=== PATIENT | male | born 1945 | race Caucasian/White ===

== ENCOUNTER → 2020-07-23 | Outpatient (CLI) | payer MEDICARE, OTHER, SELFPAY ==
[2020-07-23 18:22] LABS: ALB/GLOB Ratio 0.9 RATIO (0.9-2.4); AST(SGOT) 27 U/L (15-37); Alanine Aminotransfer ALT/SGPT 57 U/L (16-61); Albumin, Serum 3.1 g/dL (3.2-5.0); Alkaline Phosphatase 115 U/L (45-117); Anion Gap 8 (5-15); BUN 15 mg/dL (7-18); BUN/Creat Ratio 13.4 RATIO (10-20); Calcium,Total 9.1 mg/dL (8.5-10.1); Chloride 92 mmol/L (98-107); Creatinine, Serum 1.12 mg/dL (0.70-1.30); EST Glomerular Filtration Rate 68 mL/min (>60); Est Glom Filt Rate - Afr Amer 82 mL/min (>60); Globulin 3.6 g/dL (2.2-4.2); Glucose 110 mg/dL (74-106); Potassium 4.1 mmol/L (3.5-5.1); Protein, Total 6.7 g/dL (6.4-8.2); Sodium Level 128 mmol/L (136-145)
== END | disposition home or self-care (01) ==
PROVIDERS: Visit Provider Family Medicine
DX: E83.51 Hypocalcemia (principal)
CPT/HCPCS: 80053

== ENCOUNTER → 2020-07-30 | Outpatient (CLI) | payer MEDICARE, OTHER, SELFPAY ==
[2020-07-30 18:26] LABS: Anion Gap 8 (5-15); BUN 14 mg/dL (7-18); BUN/Creat Ratio 11.5 RATIO (10-20); Chloride 98 mmol/L (98-107); Creatinine, Serum 1.22 mg/dL (0.70-1.30); EST Glomerular Filtration Rate 61 mL/min (>60); Est Glom Filt Rate - Afr Amer 74 mL/min (>60); Glucose 97 mg/dL (74-106); Potassium 4.2 mmol/L (3.5-5.1); Sodium Level 134 mmol/L (136-145)
== END | disposition home or self-care (01) ==
PROVIDERS: Visit Provider Family Medicine
DX: E87.1 Hypo-osmolality and hyponatremia (principal)
CPT/HCPCS: 80048

== ENCOUNTER → 2022-10-26 | Outpatient (CLI) | payer MEDICARE, OTHER, SELFPAY ==
--- NOTE | 2022-10-26 08:50 | RAD_ITS ---
EXAMINATION: Fluoroscopic Upper GI study with esophagram. INDICATION: Chronic cough EXAMINATION/TECHNIQUE: Thick and thin oral contrast, and gas bubbles was administered orally to the patient. Total Fluoroscopic Time: 16 seconds AND number of Fluoroscopic Images: 14 spot images and 2 cine clips. COMPARISON: None. FINDINGS: There is delayed motility and esophageal spasm involving the distal esophagus. There are a few short segment areas of luminal narrowing in the midesophagus. There are mucosal irregularities in the distal esophagus relating to chronic reflux. There is a small hiatal hernia with moderate amount of reflux elicited. Contrast passes through the esophagus, stomach, and into the proximal small bowel without definitive findings of obstruction. The duodenal sweep appears normal. RAD/Upper GI Dual Contrast IMPRESSION: 1. Small hiatal hernia with gastric reflux. 2. Mucosal irregularities in the distal esophagus associated with chronic reflux. 3. Delayed motility and esophageal spasm. 4. A few short segment areas of luminal narrowing in the midesophagus which could relate to strictures. Further assessment with endoscopy is recommended. Electronically Signed: Timmy Vanegas DO at 13:19 EDT ,
== END | disposition home or self-care (01) ==
PROVIDERS: PCP Family Medicine; Referring Provider Family Medicine; Visit Provider Family Medicine
DX: R05.3 Chronic cough (principal)
CPT/HCPCS: 74246